=== PATIENT | female | born 1985 | race Two or more races ===

== ENCOUNTER 2017-12-09 17:34 | Emergency (ER) | payer OTHER ==
[2017-12-09 17:50] LABS: BILIRUBIN,URINE NEGATIVE (NEG); CLARITY,URINE CLEAR; COLOR,URINE YELLOW; GLUCOSE,URINE NEGATIVE (NEG); NITRITE,URINE NEGATIVE (NEG); PH,URINE 6.5; PROTEIN,URINE NEGATIVE (NEG-TRACE); UROBILINOGEN,URINE 0.2 mg/dL (0.2 mg/dL)
[2017-12-09 17:53] LABS: URINE HCG POC HCG NEGATIVE (Negative)
[2017-12-09 18:01] LABS: RBC,URINE 0 /HPF (0-2)
[2017-12-09 18:02] LABS: BACTERIA,URINE 0 /HPF (0-FEW); SQUAMOUS EPITHELIAL CELL,UR MOD /LPF
[2017-12-11 15:32] LABS: CHLAMYDIA PROBE Negative (Negative); GC PROBE Negative (Negative)
== END 2017-12-09 18:42 | disposition home or self-care (01) ==
LOC: ER 17:34
DX: R10.2 Pelvic and perineal pain (principal); G89.29 Other chronic pain
CPT/HCPCS: 81001; 81025; 87086; 87491; 87591; 99284; Q0111

== ENCOUNTER 2019-05-12 05:49 | Day surgery (SDC) | payer OTHER ==
[~2019-05-12] VITALS: Ht 162.6 cm; Wt 68.0 kg
[2019-05-12] MEDS ORDERED: HYDROmorphone 2 MG/ML VIAL IV PRN (07:00)
[2019-05-12] MEDS ORDERED: MORPHINE SULFATE 2 MG/ML VIAL. IV PRN (07:00)
[2019-05-12] MEDS ORDERED: IV RINGERS,LACTATED 1000ML 1,000 ML IV SCH (07:00)
[2019-05-12] MEDS ORDERED: ONDANSETRON PF 4 MG/2 ML VIAL. IV PRN (07:00)
[2019-05-12] MEDS ORDERED: fentaNYL PF VIAL 100 MCG/2 ML VIAL IV PRN ×2 (07:00)
[2019-05-12] MEDS ORDERED: PROCHLORPERAZINE 10 MG/2 ML VIAL. IV PRN (07:00)
[2019-05-12] MEDS ORDERED: fentaNYL PF VIAL 100 MCG/2 ML VIAL ONE (07:43)
[2019-05-12] MEDS ORDERED: MIDAZOLAM HCL/PF 2 MG/2 ML VIAL. ONE (07:43)
[2019-05-12] MEDS ORDERED: DEXAMETHASONE SOD PHOS 4 MG/ML VIAL ONE (08:22)
[2019-05-12] MEDS ORDERED: LIDOCAINE 2% PF 5 ML VIAL. ONE (08:22)
[2019-05-12] MEDS ORDERED: PROPOFOL 20 ML IV ONE (08:22)
[2019-05-12] MEDS ORDERED: KETOROLAC 30 MG/ML VIAL. ONE (08:23)
[2019-05-12] MEDS ORDERED: ONDANSETRON PF 4 MG/2 ML VIAL. ONE (08:23)
[2019-05-12] MEDS ORDERED: SEVOFLURANE 31 TO 60 MINUTES. IH ONE (08:27)
[2019-05-12] MEDS ORDERED: SILVER NITRATE STICK TP ONE (08:29)
--- NOTE | 2019-05-12 08:40 | PDOC ---
BRIEF OPERATIVE NOTE Date: May 12, 2019 Pre-Op Diagnosis 1. Dyspareunia 2. Chronic Pelvic Pain 3. AUB Post-Op Diagnosis Same + Endometrial Polyp Procedure Performed Op [facility] Surgeon Dr. Skelton Anesthesia Type: General Blood Loss less than 5 ml Specimens Obtained endometrial polyp Findings endometrial polyps Complications none Operative Note see dictation BENJAMIN SKELTON Jr, MD May 12, 2019 08:40
--- NOTE | 2019-05-12 08:42 | DISCH ---
DISCHARGE INSTRUCTIONS Condition on Discharge Condition on Discharge: Stable Activity After Discharge Activity Instructions for Disc: Activity as tolerated Lifting Instructions after Dis: No heavy lifting Driving Instructions after Dis: Do not drive today Diet after Discharge Diet after Discharge: Regular Contacting the DRMarbella after DC Call your doctor for: Concerns you may have Follow-Up Follow up with: Dr. Skelton in 1 wk BENJAMIN SKELTON Jr, MD May 12, 2019 08:42
[2019-05-12 09:26] VITALS: BP 86/50
--- NOTE | 2019-05-12 10:36 | OP ---
DATE OF SURGERY: 05/12/2019 PREOPERATIVE DIAGNOSES: 1. Dyspareunia. 2. Chronic pelvic pain. 3. Abnormal uterine bleeding. POSTOPERATIVE DIAGNOSES: 1. Dyspareunia. 2. Chronic pelvic pain. 3. Abnormal uterine bleeding. 4. Endometrial polyp. PROCEDURE: Operative hysteroscopy. SURGEON: Anibal Skelton MD ANESTHESIA: GETA. ESTIMATED BLOOD LOSS: Less than 5 mL. COMPLICATIONS: None. FINDINGS: Endometrial polyps. SUMMARY: A 34-year-old female, who was diagnosed with dyspareunia, chronic pelvic pain and abnormal uterine bleeding. At clinic, she was counseled on need for operative hysteroscopy, risks, benefits and expectations and voiced clear understanding to proceed. DESCRIPTION OF PROCEDURE: The patient was taken to surgery suite and placed in dorsal lithotomy position. She was prepped with Betadine solution and draped in sterile fashion. After adequate anesthesia, weighted speculum and right angle retractor were placed. A single-tooth tenaculum was used to grasp the anterior lip of the cervix. The cervix was dilated with Hegar dilators up to size 7. TruClear hysteroscope was placed. There were polyps, one large polyp that was about 2-3 cm size, a second polyp that was about 0.5 cm size. These were removed with TruClear device. The uterus was then homogenous. The TruClear device was then removed. Single-tooth tenaculum and weighted speculum were removed. The patient tolerated the procedure well and was taken to recovery room in stable condition. Sponge and needle count correct x 3. ANIBAL SKELTON MD DR: MEI/alexander JOB#: [id number] / [id number]
== END 2019-05-12 09:50 ==
LOC: SURG 05:49
PROVIDERS: ATTEND Obstetrics & Gynecology
DX: N84.0 Polyp of corpus uteri (principal); N94.10 Unspecified dyspareunia; N93.9 Abnormal uterine and vaginal bleeding, unspecified
CPT/HCPCS: 58558; 81025; A7015; J0696; J1100; J1885; J2001; J2250; J2405; J2704; J3010